=== PATIENT | male | born 1975 | race Two or more races ===

== ENCOUNTER 2024-03-27 01:24 | Emergency (ER) | payer MEDICARE, MEDICAID ==
[~2024-03-27] VITALS: Ht 182.9 cm; Wt 114.0 kg
[2024-03-27] MEDS: ACETAMINOPHEN 325 MG TAB PO ONE (02:01)
[2024-03-27 03:58] VITALS: BP 138/88; PULSE 83; RESP 20; TEMP 97.9; O2SAT 97
== END 2024-03-27 03:57 | disposition home or self-care (01) ==
LOC: ER 01:24
DX: S06.89AA Other specified intracranial injury with loss of consciousness status unknown, initial encounter (principal); W22.8XXA Striking against or struck by other objects, initial encounter; Y93.68 Activity, volleyball (beach) (court); Y92.89 Other specified places as the place of occurrence of the external cause; Y99.8 Other external cause status
CPT/HCPCS: 70450; 72125